=== PATIENT | male | born 1950 | race Caucasian/White ===

== ENCOUNTER 2022-12-26 14:13 | Emergency (ER) | payer OTHER ==
[2022-12-26 15:06] LABS: #Monocytes 0.5 10x3/uL (0.0-1.1); #Neutrophils 4.1 10x3/uL (1.5-8.4); %Basophils 0.6 % (0.0-2.0); %Eosinophils 0.6 % (0.0-6.0); %Lymphocytes 12.8 % (18.0-47.0); %Monocytes 9.8 % (0.0-10.0); Hemoglobin 14.7 g/dL (13.5-17.5); Mean Corpuscular HGB CONC 32.7 g/dL (32.0-36.0); Mean Corpuscular Hemoglobin 28.1 pg (27.0-33.0); Mean Corpuscular Volume 85.9 fl (81.2-95.1); Mean Platelet Volume 9.9 fl (7.4-10.4); Platelet Count 141 10x3/uL (150-450); RBC Distribution Width 14.9 % (11.5-14.5); Red Blood Cell (RBC) Count 5.23 10x6/uL (4.32-5.72); White Blood Cell (WBC) Count 5.3 10x3/uL (3.5-10.5)
[2022-12-26 15:12] LABS: ALT (SGPT) 29 U/L (8-55); AST (SGOT) 30 U/L (5-34); Albumin 4.3 g/dL (3.4-4.8); Alkaline Phosphatase 99 U/L (40-110); Anion Gap 18 mmol/L (10-20); BUN (Urea Nitrogen) 13 mg/dL (8.4-25.7); Bilirubin, Total 0.5 mg/dL (0.2-1.2); Calc. Creatinine Clearance 0 mL/min (70-130); Calcium 9.2 mg/dL (7.8-10.44); Carbon Dioxide 18 mmol/L (23-31); Chloride 105 mmol/L (98-107); Estimated GFR 63; Globulin 2.7 g/dL (2.4-3.5); Glucose 121 mg/dL (83-110); Lipase 18 U/L (8-78); Potassium 3.8 mmol/L (3.5-5.1); Sodium 137 mmol/L (136-145)
[2022-12-26 17:36] LABS: Bilirubin Neg (Negative); Blood, Urine 25 (Negative); Clarity Clear (Clear); Glucose, Urine (Dipstick) >=1000 mg/dL (Negative); Ketone, Urine 50 mg/dL (Negative); Leukocyte Negative (Negative); Nitrite Negative (Negative); Protein, Urine (Dipstick) 15 mg/dl (Neg-Trace); Urobilinogen Normal mg/dL (Less than 2)
[2022-12-26] MEDS ORDERED: Ipratropium/Albuterol 3 ML NEB ONE (17:44)
[2022-12-26 17:45] LABS: Bacteria/HPF Rare-Few HPF (None Seen); CAUTI Indications for Culture Dysuria,urgency,freq; Mucous/LPF Rare LPF (<2+); Squamous Epithelial 0-3 HPF (0-3); Urine Culture Reflex No No; WBC/HPF 0-3 HPF (0-3)
[2022-12-26] MEDS ORDERED: Ondansetron PF 4 MG/2 ML Vial ONE (18:02)
[2022-12-26] MEDS ORDERED: Ketorolac Tromethamine 30 MG/ML VIAL ONE (18:02)
[2022-12-26 18:18] LABS: SARS-CoV-2 NAA Rapid Test DETECTED (NotDetected)
[2022-12-26 18:21] LABS: Actual Bicarbonate (HCO3v) 23.7 mEq/L (22-28); Base Excess 0.2 mEq/L (-2 - +2); Calcium, Ionized (venous) 1.18 mmol/L (1.16-1.32); Chloride (VBG) 104 mmol/L (98-106); Critical Notified By: CP.PH; Hematocrit-VBG 45 % (42.0-52.0); Hemoglobin (Hb) 15.3 g/dL (12.6-17.4); Potassium (VBG) 3.82 mmol/L (3.70-5.30); Puncture Site Other Site; Sodium 139.6 mmol/L (133-146); pH (venous) 7.446 (7.32-7.43)
== END 2022-12-26 19:46 | disposition home or self-care (01) ==
LOC: CSHERS 14:13
DX: U07.1 COVID-19 (principal); E11.9 Type 2 diabetes mellitus without complications; E78.5 Hyperlipidemia, unspecified; I10 Essential (primary) hypertension; Z87.891 Personal history of nicotine dependence
CPT/HCPCS: 0240U; 71045; 80053; 81001; 82805; 83690; 84484; 85025; 93005; 94640; 36415; 96361; 96374; 96375; J1885; J2405; J7620

== ENCOUNTER 2022-12-29 10:01 | Inpatient (IN) | payer OTHER ==
[2022-12-29] MEDS ORDERED: Dexamethasone 10 MG/ML VIAL ONE (10:56)
[2022-12-29] MEDS ORDERED: Aspirin Chewable 81 MG TAB ONE (11:31)
[2022-12-29] MEDS ORDERED: Cefepime 2 GM VIAL ONE (11:31)
[2022-12-29] MEDS ORDERED: Pantoprazole 40 MG VIAL ONE (11:32)
[2022-12-29] MEDS ORDERED: Azithromycin 500 MG VIAL ONE (11:32)
[2022-12-29 11:47] LABS: #Monocytes 0.4 10x3/uL (0.0-1.1); %Lymphocytes 9.7 % (18.0-47.0); %Neutrophils 83.8 % (40.0-75.0); Hematocrit 45.7 % (38.8-50.0); Hemoglobin 14.8 g/dL (13.5-17.5); Mean Corpuscular HGB CONC 32.4 g/dL (32.0-36.0); Mean Corpuscular Hemoglobin 28.1 pg (27.0-33.0); Mean Corpuscular Volume 86.7 fl (81.2-95.1); Mean Platelet Volume 9.9 fl (7.4-10.4); Platelet Count 150 10x3/uL (150-450); RBC Distribution Width 15.1 % (11.5-14.5); Red Blood Cell (RBC) Count 5.27 10x6/uL (4.32-5.72)
[2022-12-29 11:55] LABS: ALT (SGPT) 40 U/L (8-55); AST (SGOT) 59 U/L (5-34); Albumin 4.2 g/dL (3.4-4.8); Alkaline Phosphatase 96 U/L (40-110); Anion Gap 21 mmol/L (10-20); BUN (Urea Nitrogen) 18 mg/dL (8.4-25.7); Bilirubin, Total 0.6 mg/dL (0.2-1.2); Calc. Creatinine Clearance 0 mL/min (70-130); Calcium 9.3 mg/dL (7.8-10.44); Carbon Dioxide 18 mmol/L (23-31); Chloride 103 mmol/L (98-107); Estimated GFR 51; Globulin 3.3 g/dL (2.4-3.5); Glucose 167 mg/dL (83-110); Potassium 4.2 mmol/L (3.5-5.1); Protein, Total 7.5 g/dL (5.8-8.1); Sodium 138 mmol/L (136-145)
[2022-12-29 14:46] LABS: Actual Bicarbonate (HCO3a) 20.4 mEq/L (22-28); Base Excess (BEa) -3.7 mEq/L (-2.0 to +3.0); CO2 Tension 34.4 mmHg (35.0-45.0); Calcium, Ionized (arterial) 1.18 mmol/L (1.12-1.30); Carboxyhemoglobin (COHb) 0.2 gm% (0.0-3.0); Hematocrit-ABG 42 % (42.0-52.0); Hemoglobin (Hb) 14.4 g/dL (14.0-18.0); O2 Tension (PaO2), arterial 84.6 mmHg (> 70.0); Potassium - ABG Lab 4.13 mmol/L (3.70-5.30); Puncture Site LRA; pH, Arterial 7.391 (7.35-7.45)
[2022-12-29] MEDS ORDERED: Senokot S 8.6-50 MG TAB PO PRN (17:31)
[2022-12-29] MEDS ORDERED: Acetaminophen 325 MG TAB PO PRN ×2 (17:31)
[2022-12-29] MEDS ORDERED: HYDROcodone/Acetaminophen 10/325 mg Tablet PO PRN (17:31)
[2022-12-29] MEDS ORDERED: Acetaminophen 650 MG Suppository PR PRN (17:31)
[2022-12-29] MEDS ORDERED: HYDROcodone/Acetaminophen 5/325 mg Tablet PO PRN (17:31)
[2022-12-29] MEDS ORDERED: Benzonatate 100 MG CAP PO PRN (17:31)
[2022-12-29] MEDS ORDERED: REMDESIVIR 200 MG in Sodium Chloride 0.9% 250 ML 210 ML IV SCH ×2 (17:45→23:00)
[2022-12-29] MEDS ORDERED: Glucagon 1 MG/ML KIT IM PRN (20:02)
[2022-12-29] MEDS ORDERED: Dextrose 50% Abboject 50 ML SYRINGE SLOW IVP PRN (20:02)
[2022-12-29] MEDS ORDERED: Dextrose 5% in Water 1,000 ML IV PRN (20:02)
[2022-12-29] MEDS: Lantus 1000 UNITS/10 ML VIAL SC SCH (22:19)
[2022-12-29] MEDS: Famotidine 20 MG TAB PO SCH (22:45)
[2022-12-29] MEDS: Ventolin HFA Inhaler 60 PUFF INHALER INH PRN (23:35)
[2022-12-30] MEDS: Ondansetron ODT 4 MG TAB PO PRN ×2 (04:28→21:28)
[2022-12-30 06:15] LABS: Hematocrit 43.9 % (38.8-50.0); Mean Corpuscular HGB CONC 31.9 g/dL (32.0-36.0); Mean Corpuscular Hemoglobin 27.8 pg (27.0-33.0); Mean Corpuscular Volume 87.3 fl (81.2-95.1); Mean Platelet Volume 9.8 fl (7.4-10.4); Platelet Count 204 10x3/uL (150-450); RBC Distribution Width 15.2 % (11.5-14.5); Red Blood Cell (RBC) Count 5.03 10x6/uL (4.32-5.72); White Blood Cell (WBC) Count 10.9 10x3/uL (3.5-10.5)
[2022-12-30 06:26] LABS: ALT (SGPT) 32 U/L (8-55); AST (SGOT) 47 U/L (5-34); Albumin 3.6 g/dL (3.4-4.8); Alkaline Phosphatase 86 U/L (40-110); Anion Gap 19 mmol/L (10-20); BUN (Urea Nitrogen) 25 mg/dL (8.4-25.7); Bilirubin, Total 0.5 mg/dL (0.2-1.2); Calc. Creatinine Clearance 84 mL/min (70-130); Carbon Dioxide 18 mmol/L (23-31); Chloride 107 mmol/L (98-107); Estimated GFR 59; Glucose 189 mg/dL (83-110); Potassium 4.1 mmol/L (3.5-5.1); Protein, Total 6.6 g/dL (5.8-8.1); Sodium 140 mmol/L (136-145)
[2022-12-30 06:50] LABS: MDiff Complete? YES
[2022-12-30 06:53] LABS: Band 13 % (5-11); Lymphocytes 8 % (21-51); Monocytes 6 % (0-10); Neutrophil 73 % (42-75)
[2022-12-30 06:57] LABS: Platelet Adequacy Comment Appears Adequate; RBC Morph Comment Within Normal Limits
[2022-12-30] MEDS ORDERED: Promethazine HCl 12.5 MG in Sodium Chloride 0.9% 50 ML IVPB SCH (07:00)
[2022-12-30] MEDS: Dexamethasone 4 MG TAB PO SCH (09:32)
[2022-12-30] MEDS: Famotidine 20 MG TAB PO SCH ×2 (09:32→21:28)
[2022-12-30] MEDS: Zinc Sulfate 220 MG CAP PO SCH (09:32)
[2022-12-30] MEDS: Lantus 1000 UNITS/10 ML VIAL SC SCH (21:28)
[2022-12-30] MEDS: REMDESIVIR 100 MG in Sodium Chloride 0.9% 250 ML 230 ML IV SCH (22:44)
[2022-12-31] MEDS: Famotidine 20 MG TAB PO SCH ×2 (09:01→20:10)
[2022-12-31] MEDS: Dexamethasone 4 MG TAB PO SCH (09:02)
[2022-12-31] MEDS: Zinc Sulfate 220 MG CAP PO SCH (09:02)
[2022-12-31] MEDS: Ondansetron ODT 4 MG TAB PO PRN (09:03)
[2022-12-31] MEDS: Ventolin HFA Inhaler 60 PUFF INHALER INH PRN ×2 (13:50→18:50)
[2022-12-31 15:05] LABS: Anion Gap 18 mmol/L (10-20); BUN (Urea Nitrogen) 29 mg/dL (8.4-25.7); CRP (Inflammatory) 14.69 mg/dL (= or < 0.5); Calc. Creatinine Clearance 100 mL/min (70-130); Calcium 9.3 mg/dL (7.8-10.44); Carbon Dioxide 18 mmol/L (23-31); Chloride 106 mmol/L (98-107); Estimated GFR 72; Glucose 273 mg/dL (83-110); Potassium 4.4 mmol/L (3.5-5.1); Sodium 138 mmol/L (136-145)
[2022-12-31 15:56] LABS: Actual Bicarbonate (HCO3a) 21.8 mEq/L (22-28); Base Excess (BEa) -2.3 mEq/L (-2.0 to +3.0); CO2 Tension 35.6 mmHg (35.0-45.0); Calcium, Ionized (arterial) 1.22 mmol/L (1.12-1.30); Carboxyhemoglobin (COHb) 0.3 gm% (0.0-3.0); Hematocrit-ABG 44 % (42.0-52.0); Hemoglobin (Hb) 14.8 g/dL (14.0-18.0); O2 Tension (PaO2), arterial 70.9 mmHg (> 70.0); Puncture Site RRA; pH, Arterial 7.404 (7.35-7.45)
[2022-12-31] MEDS: Lantus 1000 UNITS/10 ML VIAL SC SCH (20:10)
[2022-12-31] MEDS: ALPRAZolam 0.25 MG TAB PO PRN (20:10)
[2022-12-31] MEDS: HumaLOG 300 UNITS/3 ML VIAL SC PRN (20:20)
[2022-12-31] MEDS: REMDESIVIR 100 MG in Sodium Chloride 0.9% 250 ML 230 ML IV SCH (22:36)
[2022-12-31] MEDS: Melatonin 3 MG TAB PO PRN (22:36)
[2023-01-01] MEDS: ALPRAZolam 0.25 MG TAB PO PRN (01:38)
[2023-01-01] MEDS ORDERED: Lorazepam 2 MG/ML VIAL SLOW IVP SCH (03:45)
[2023-01-01] MEDS: HumaLOG 300 UNITS/3 ML VIAL SC PRN ×3 (05:37→20:45)
[2023-01-01] MEDS ORDERED: Haloperidol Lactate 5 MG/ML VIAL IM PRN (07:37)
[2023-01-01] MEDS: Sodium Chloride 0.45% 1,000 ML IV SCH ×2 (08:23→20:31)
[2023-01-01 08:24] LABS: #Monocytes 0.4 10x3/uL (0.0-1.1); #Neutrophils 7.5 10x3/uL (1.5-8.4); %Basophils 0.1 % (0.0-2.0); %Lymphocytes 7.4 % (18.0-47.0); %Monocytes 5.1 % (0.0-10.0); %Neutrophils 86.7 % (40.0-75.0); Hematocrit 42.8 % (38.8-50.0); Hemoglobin 14.1 g/dL (13.5-17.5); Mean Corpuscular HGB CONC 32.9 g/dL (32.0-36.0); Mean Corpuscular Hemoglobin 28.1 pg (27.0-33.0); Mean Corpuscular Volume 85.3 fl (81.2-95.1); Mean Platelet Volume 9.6 fl (7.4-10.4); Platelet Count 271 10x3/uL (150-450); RBC Distribution Width 15.2 % (11.5-14.5); Red Blood Cell (RBC) Count 5.02 10x6/uL (4.32-5.72); White Blood Cell (WBC) Count 8.7 10x3/uL (3.5-10.5)
[2023-01-01 08:33] LABS: Anion Gap 15 mmol/L (10-20); BUN (Urea Nitrogen) 29 mg/dL (8.4-25.7); Calc. Creatinine Clearance 113 mL/min (70-130); Carbon Dioxide 21 mmol/L (23-31); Chloride 107 mmol/L (98-107); Estimated GFR 83; Glucose 255 mg/dL (83-110); Potassium 4.4 mmol/L (3.5-5.1); Sodium 139 mmol/L (136-145)
[2023-01-01] MEDS: Famotidine 20 MG TAB PO SCH ×2 (09:07→20:31)
[2023-01-01] MEDS: Dexamethasone 4 MG TAB PO SCH (09:07)
[2023-01-01] MEDS: Zinc Sulfate 220 MG CAP PO SCH (09:07)
[2023-01-01] MEDS ORDERED: risperiDONE 1 MG TAB PO SCH (10:00)
[2023-01-01] MEDS: Melatonin 3 MG TAB PO PRN (20:31)
[2023-01-01] MEDS: Lantus 1000 UNITS/10 ML VIAL SC SCH (20:32)
[2023-01-01] MEDS: REMDESIVIR 100 MG in Sodium Chloride 0.9% 250 ML 230 ML IV SCH (23:12)
[2023-01-02] MEDS: Ondansetron ODT 4 MG TAB PO PRN ×2 (00:59→09:39)
[2023-01-02 03:49] LABS: Anion Gap 16 mmol/L (10-20); BUN (Urea Nitrogen) 23 mg/dL (8.4-25.7); Calc. Creatinine Clearance 137 mL/min (70-130); Calcium 8.6 mg/dL (7.8-10.44); Carbon Dioxide 20 mmol/L (23-31); Chloride 105 mmol/L (98-107); Estimated GFR 94; Glucose 172 mg/dL (83-110); Potassium 4.5 mmol/L (3.5-5.1); Sodium 136 mmol/L (136-145)
[2023-01-02 03:59] LABS: #Monocytes 0.3 10x3/uL (0.0-1.1); #Neutrophils 6.6 10x3/uL (1.5-8.4); %Basophils 0.2 % (0.0-2.0); %Eosinophils 0.4 % (0.0-6.0); %Lymphocytes 12.1 % (18.0-47.0); %Neutrophils 82.4 % (40.0-75.0); Hematocrit 44.4 % (38.8-50.0); Hemoglobin 14.3 g/dL (13.5-17.5); Mean Corpuscular HGB CONC 32.2 g/dL (32.0-36.0); Mean Corpuscular Hemoglobin 27.7 pg (27.0-33.0); Mean Corpuscular Volume 85.9 fl (81.2-95.1); Mean Platelet Volume 9.1 fl (7.4-10.4); Platelet Count 237 10x3/uL (150-450); Red Blood Cell (RBC) Count 5.17 10x6/uL (4.32-5.72)
[2023-01-02] MEDS: ALPRAZolam 0.25 MG TAB PO PRN (04:43)
[2023-01-02] MEDS: HumaLOG 300 UNITS/3 ML VIAL SC PRN ×3 (06:20→22:41)
[2023-01-02] MEDS: Sertraline 100 MG TAB PO SCH (08:00)
[2023-01-02] MEDS: Atorvastatin Calcium 40 MG TAB PO SCH (08:00)
[2023-01-02] MEDS: Bupropion 150 MG SR TAB PO SCH (08:00)
[2023-01-02] MEDS: Zinc Sulfate 220 MG CAP PO SCH (08:00)
[2023-01-02] MEDS: Dexamethasone 4 MG TAB PO SCH (08:00)
[2023-01-02] MEDS: risperiDONE 1 MG TAB PO SCH (08:00)
[2023-01-02] MEDS: Famotidine 20 MG TAB PO SCH ×2 (08:00→20:18)
[2023-01-02] MEDS: Sodium Chloride 0.45% 1,000 ML IV SCH ×2 (09:31→21:57)
[2023-01-02] MEDS ORDERED: Furosemide 40 MG/4 ML VIAL SLOW IVP SCH ×2 (10:30→21:00)
[2023-01-02] MEDS ORDERED: Lorazepam 2 MG/ML VIAL SLOW IVP PRN (16:44)
[2023-01-02 20:14] LABS: Actual Bicarbonate (HCO3a) 20.9 mEq/L (22-28); Base Excess (BEa) -1.2 mEq/L (-2.0 to +3.0); CO2 Tension 28.8 mmHg (35.0-45.0); O2 Tension (PaO2), arterial 50.5 mmHg (> 70.0); Puncture Site LRA; pH, Arterial 7.479 (7.35-7.45)
[2023-01-02] MEDS: Furosemide 40 MG/4 ML VIAL SLOW IVP SCH (20:43)
[2023-01-02] MEDS: Lantus 1000 UNITS/10 ML VIAL SC SCH (20:43)
[2023-01-02] MEDS: Dexmedetomidine In 0.9 % NaCl 400 MCG in Premix Bag 1 BAG IVPB SCH (20:50)
[2023-01-02] MEDS: REMDESIVIR 100 MG in Sodium Chloride 0.9% 250 ML 230 ML IV SCH (22:36)
[2023-01-03 04:38] LABS: ALT (SGPT) 69 U/L (8-55); AST (SGOT) 54 U/L (5-34); Albumin 3.4 g/dL (3.4-4.8); Alkaline Phosphatase 114 U/L (40-110); Anion Gap 18 mmol/L (10-20); BUN (Urea Nitrogen) 23 mg/dL (8.4-25.7); Bilirubin, Total 0.9 mg/dL (0.2-1.2); Calc. Creatinine Clearance 120 mL/min (70-130); Carbon Dioxide 25 mmol/L (23-31); Chloride 102 mmol/L (98-107); Estimated GFR 90; Globulin 3.2 g/dL (2.4-3.5); Glucose 179 mg/dL (83-110); Phosphorus 2.4 mg/dL (2.3-4.7); Potassium 3.6 mmol/L (3.5-5.1); Protein, Total 6.6 g/dL (5.8-8.1); Sodium 141 mmol/L (136-145)
[2023-01-03 04:40] LABS: #Monocytes 0.2 10x3/uL (0.0-1.1); #Neutrophils 9.1 10x3/uL (1.5-8.4); %Basophils 0.2 % (0.0-2.0); %Eosinophils 0.2 % (0.0-6.0); %Lymphocytes 5.7 % (18.0-47.0); %Monocytes 1.7 % (0.0-10.0); %Neutrophils 91.2 % (40.0-75.0); Hematocrit 44.7 % (38.8-50.0); Hemoglobin 14.7 g/dL (13.5-17.5); Mean Corpuscular HGB CONC 32.9 g/dL (32.0-36.0); Mean Corpuscular Hemoglobin 27.8 pg (27.0-33.0); Mean Corpuscular Volume 84.5 fl (81.2-95.1); Mean Platelet Volume 9.5 fl (7.4-10.4); Platelet Count 263 10x3/uL (150-450); RBC Distribution Width 14.9 % (11.5-14.5); Red Blood Cell (RBC) Count 5.29 10x6/uL (4.32-5.72)
[2023-01-03] MEDS ORDERED: diphenhydrAMINE 50 MG/ML VIAL IM SCH (04:45)
[2023-01-03] MEDS: HumaLOG 300 UNITS/3 ML VIAL SC PRN ×5 (05:22→21:55)
[2023-01-03] MEDS: Furosemide 40 MG/4 ML VIAL SLOW IVP SCH ×2 (08:41→20:17)
[2023-01-03] MEDS: Dexamethasone 20 MG/5 ML VIAL SLOW IVP SCH (08:41)
[2023-01-03] MEDS: Zinc Sulfate 220 MG CAP PO SCH (08:42)
[2023-01-03] MEDS: risperiDONE 1 MG TAB PO SCH (08:42)
[2023-01-03] MEDS: Famotidine 20 MG TAB PO SCH ×2 (08:42→20:17)
[2023-01-03] MEDS: Atorvastatin Calcium 40 MG TAB PO SCH (08:42)
[2023-01-03] MEDS: Bupropion 150 MG SR TAB PO SCH (08:42)
[2023-01-03] MEDS: Sertraline 100 MG TAB PO SCH (08:42)
[2023-01-03] MEDS ORDERED: Dexamethasone 10 MG in Sodium Chloride 0.9% 50 ML IVPB SCH (09:00)
[2023-01-03] MEDS ORDERED: BARICITINIB 2 MG TAB PO SCH ×2 (10:30→10:45)
[2023-01-03] MEDS ORDERED: Cefepime 2 GM in Sodium Chloride 0.9% 100 ML IVPB SCH (12:00)
[2023-01-03] MEDS: Dexmedetomidine In 0.9 % NaCl 400 MCG in Premix Bag 1 BAG IVPB SCH (18:26)
[2023-01-03] MEDS: Cefepime 2 GM in Sodium Chloride 0.9% 100 ML IVPB SCH (20:17)
[2023-01-03] MEDS: Lantus 1000 UNITS/10 ML VIAL SC SCH (20:17)
[2023-01-04 05:39] LABS: Anion Gap 21 mmol/L (10-20); BUN (Urea Nitrogen) 33 mg/dL (8.4-25.7); CRP (Inflammatory) 22.75 mg/dL (= or < 0.5); Calc. Creatinine Clearance 100 mL/min (70-130); Calcium 9.6 mg/dL (7.8-10.44); Carbon Dioxide 24 mmol/L (23-31); Chloride 104 mmol/L (98-107); Estimated GFR 79; Glucose 218 mg/dL (83-110); Potassium 3.6 mmol/L (3.5-5.1); Sodium 145 mmol/L (136-145)
[2023-01-04 05:42] LABS: #Monocytes 0.2 10x3/uL (0.0-1.1); #Neutrophils 12.5 10x3/uL (1.5-8.4); %Basophils 0.2 % (0.0-2.0); %Eosinophils 0.2 % (0.0-6.0); %Monocytes 1.3 % (0.0-10.0); %Neutrophils 94.4 % (40.0-75.0); Hematocrit 46.7 % (38.8-50.0); Hemoglobin 15.2 g/dL (13.5-17.5); Mean Corpuscular HGB CONC 32.5 g/dL (32.0-36.0); Mean Corpuscular Hemoglobin 27.8 pg (27.0-33.0); Mean Corpuscular Volume 85.4 fl (81.2-95.1); Mean Platelet Volume 9.5 fl (7.4-10.4); Platelet Count 329 10x3/uL (150-450); RBC Distribution Width 15.2 % (11.5-14.5); Red Blood Cell (RBC) Count 5.47 10x6/uL (4.32-5.72); White Blood Cell (WBC) Count 13.2 10x3/uL (3.5-10.5)
[2023-01-04] MEDS: HumaLOG 300 UNITS/3 ML VIAL SC PRN ×4 (05:45→20:49)
[2023-01-04] MEDS: Cefepime 2 GM in Sodium Chloride 0.9% 100 ML IVPB SCH ×3 (08:24→20:25)
[2023-01-04] MEDS: Dexamethasone 20 MG/5 ML VIAL SLOW IVP SCH (08:25)
[2023-01-04] MEDS: Dexmedetomidine In 0.9 % NaCl 400 MCG in Premix Bag 1 BAG IVPB SCH ×2 (08:25→22:04)
[2023-01-04] MEDS: Furosemide 40 MG/4 ML VIAL SLOW IVP SCH ×2 (08:25→20:21)
[2023-01-04] MEDS: Atorvastatin Calcium 40 MG TAB PO SCH (08:26)
[2023-01-04] MEDS: risperiDONE 1 MG TAB PO SCH (08:27)
[2023-01-04] MEDS: Sertraline 100 MG TAB PO SCH (08:27)
[2023-01-04] MEDS: Bupropion 150 MG SR TAB PO SCH (08:27)
[2023-01-04] MEDS: Zinc Sulfate 220 MG CAP PO SCH (08:27)
[2023-01-04] MEDS: Famotidine 20 MG TAB PO SCH ×2 (08:27→20:21)
[2023-01-04] MEDS ORDERED: BARICITINIB 2 MG TAB PO SCH ×2 (09:00)
[2023-01-04] MEDS: Lantus 1000 UNITS/10 ML VIAL SC SCH (20:21)
[2023-01-05 03:25] LABS: #Monocytes 0.4 10x3/uL (0.0-1.1); #Neutrophils 16.3 10x3/uL (1.5-8.4); %Basophils 0.2 % (0.0-2.0); %Eosinophils 0.2 % (0.0-6.0); %Lymphocytes 2.3 % (18.0-47.0); %Monocytes 2.4 % (0.0-10.0); %Neutrophils 93.8 % (40.0-75.0); Hematocrit 48.2 % (38.8-50.0); Hemoglobin 15.9 g/dL (13.5-17.5); Platelet Count 321 10x3/uL (150-450); RBC Distribution Width 15.8 % (11.5-14.5); Red Blood Cell (RBC) Count 5.67 10x6/uL (4.32-5.72); White Blood Cell (WBC) Count 17.4 10x3/uL (3.5-10.5)
[2023-01-05 03:53] LABS: Anion Gap 19 mmol/L (10-20); BUN (Urea Nitrogen) 45 mg/dL (8.4-25.7); Calc. Creatinine Clearance 86 mL/min (70-130); Calcium 9.7 mg/dL (7.8-10.44); Carbon Dioxide 23 mmol/L (23-31); Chloride 108 mmol/L (98-107); Estimated GFR 69; Glucose 229 mg/dL (83-110); Magnesium 2.3 mg/dL (1.6-2.6); Potassium 3.4 mmol/L (3.5-5.1); Sodium 147 mmol/L (136-145)
[2023-01-05 03:56] LABS: Platelet Adequacy Comment Appears Adequate
[2023-01-05 03:57] LABS: Microcytosis SLIGHT = 6-15 cells (100X) (0-5/hpf)
[2023-01-05] MEDS: HumaLOG 300 UNITS/3 ML VIAL SC PRN ×4 (06:09→21:49)
[2023-01-05] MEDS: Dexmedetomidine In 0.9 % NaCl 400 MCG in Premix Bag 1 BAG IVPB SCH ×2 (07:17→19:08)
[2023-01-05] MEDS ORDERED: Dexmedetomidine In 0.9 % NaCl 100 ML ONE (07:20)
[2023-01-05] MEDS: Furosemide 40 MG/4 ML VIAL SLOW IVP SCH (08:36)
[2023-01-05] MEDS: Cefepime 2 GM in Sodium Chloride 0.9% 100 ML IVPB SCH ×2 (08:36→21:45)
[2023-01-05] MEDS: Dexamethasone 20 MG/5 ML VIAL SLOW IVP SCH ×2 (08:36→16:57)
[2023-01-05] MEDS: Atorvastatin Calcium 40 MG TAB PO SCH (08:38)
[2023-01-05] MEDS: Famotidine 20 MG TAB PO SCH (08:39)
[2023-01-05] MEDS: Sertraline 100 MG TAB PO SCH (08:39)
[2023-01-05] MEDS: Zinc Sulfate 220 MG CAP PO SCH (08:39)
[2023-01-05] MEDS: Bupropion 150 MG SR TAB PO SCH (08:39)
[2023-01-05] MEDS: risperiDONE 1 MG TAB PO SCH (08:39)
[2023-01-05] MEDS ORDERED: Electrolyte Replacement Protocol 1 EACH FS SCH (15:30)
[2023-01-05] MEDS: Ascorbic Acid 500 mg Chewable Tablet PO SCH (20:22)
[2023-01-05] MEDS: Lantus 1000 UNITS/10 ML VIAL SC SCH (21:47)
[2023-01-05] MEDS: Pantoprazole 40 MG VIAL IVP SCH (21:47)
[2023-01-06] MEDS: Potassium Chloride 20 MEQ in Premix Bag 1 BAG IVPB SCH ×2 (01:08→04:08)
[2023-01-06] MEDS: Dexamethasone 20 MG/5 ML VIAL SLOW IVP SCH ×2 (04:08→15:22)
[2023-01-06] MEDS: Dexmedetomidine In 0.9 % NaCl 400 MCG in Premix Bag 1 BAG IVPB SCH ×2 (07:48→17:36)
[2023-01-06] MEDS: Cefepime 2 GM in Sodium Chloride 0.9% 100 ML IVPB SCH ×2 (09:07→21:19)
[2023-01-06] MEDS: Ascorbic Acid 500 mg Chewable Tablet PO SCH ×3 (09:08→21:19)
[2023-01-06] MEDS: Bupropion 150 MG SR TAB PO SCH (09:09)
[2023-01-06] MEDS: Zinc Sulfate 220 MG CAP PO SCH (09:09)
[2023-01-06] MEDS: Cholecalciferol 1,000 UNITS (25 MCG) TAB PO SCH (09:09)
[2023-01-06] MEDS: Sertraline 100 MG TAB PO SCH (09:09)
[2023-01-06] MEDS: Atorvastatin Calcium 40 MG TAB PO SCH (09:09)
[2023-01-06] MEDS: risperiDONE 1 MG TAB PO SCH (09:09)
[2023-01-06 11:10] LABS: Actual Bicarbonate (HCO3a) 25.2 mEq/L (22-28); Base Excess (BEa) 1.3 mEq/L (-2.0 to +3.0); Calcium, Ionized (arterial) 1.29 mmol/L (1.12-1.30); Carboxyhemoglobin (COHb) 0.3 gm% (0.0-3.0); Hematocrit-ABG 49 % (42.0-52.0); Hemoglobin (Hb) 16.7 g/dL (14.0-18.0); Potassium - ABG Lab 3.76 mmol/L (3.70-5.30); Puncture Site RRA
[2023-01-06] MEDS: HumaLOG 300 UNITS/3 ML VIAL SC PRN ×3 (11:13→22:10)
[2023-01-06] MEDS ORDERED: HumaLOG 300 UNITS/3 ML VIAL SC SCH (15:15)
[2023-01-06] MEDS: Budesonide 0.5 MG/2 ML NEB NEB SCH (19:05)
[2023-01-06] MEDS: Pantoprazole 40 MG VIAL IVP SCH (21:19)
[2023-01-06] MEDS: Lantus 1000 UNITS/10 ML VIAL SC SCH (21:39)
[2023-01-07] MEDS: Dexamethasone 20 MG/5 ML VIAL SLOW IVP SCH ×3 (04:09→15:53)
[2023-01-07 05:51] LABS: #Basophils 0.1 10x3/uL (0.0-0.2); #Monocytes 0.4 10x3/uL (0.0-1.1); #Neutrophils 19.4 10x3/uL (1.5-8.4); %Basophils 0.3 % (0.0-2.0); %Lymphocytes 2.4 % (18.0-47.0); %Neutrophils 94.5 % (40.0-75.0); Hematocrit 53.7 % (38.8-50.0); Mean Corpuscular HGB CONC 31.7 g/dL (32.0-36.0); Mean Corpuscular Volume 88.5 fl (81.2-95.1); Mean Platelet Volume 9.9 fl (7.4-10.4); Platelet Count 250 10x3/uL (150-450); RBC Distribution Width 15.8 % (11.5-14.5); Red Blood Cell (RBC) Count 6.07 10x6/uL (4.32-5.72); White Blood Cell (WBC) Count 20.6 10x3/uL (3.5-10.5)
[2023-01-07] MEDS: Dexmedetomidine In 0.9 % NaCl 400 MCG in Premix Bag 1 BAG IVPB SCH ×2 (05:53→11:10)
[2023-01-07] MEDS: HumaLOG 300 UNITS/3 ML VIAL SC PRN ×3 (06:00→17:34)
[2023-01-07 06:20] LABS: Anion Gap 21 mmol/L (10-20); BUN (Urea Nitrogen) 81 mg/dL (8.4-25.7); CRP (Inflammatory) 11.41 mg/dL (= or < 0.5); Calc. Creatinine Clearance 52 mL/min (70-130); Calcium 10.1 mg/dL (7.8-10.44); Carbon Dioxide 19 mmol/L (23-31); Chloride 121 mmol/L (98-107); Estimated GFR 38; Glucose 339 mg/dL (83-110); Potassium 3.9 mmol/L (3.5-5.1)
[2023-01-07 06:33] LABS: Sodium 157 mmol/L (136-145)
[2023-01-07] MEDS: risperiDONE 1 MG TAB PO SCH (08:32)
[2023-01-07] MEDS: Bupropion 150 MG SR TAB PO SCH (08:32)
[2023-01-07] MEDS: Lantus 1000 UNITS/10 ML VIAL SC SCH (08:32)
[2023-01-07] MEDS: Ascorbic Acid 500 mg Chewable Tablet PO SCH ×3 (08:32→20:19)
[2023-01-07] MEDS: Sertraline 100 MG TAB PO SCH (08:33)
[2023-01-07] MEDS: Atorvastatin Calcium 40 MG TAB PO SCH (08:33)
[2023-01-07] MEDS: Zinc Sulfate 220 MG CAP PO SCH (08:33)
[2023-01-07] MEDS: Cefepime 2 GM in Sodium Chloride 0.9% 100 ML IVPB SCH (08:33)
[2023-01-07] MEDS: Cholecalciferol 1,000 UNITS (25 MCG) TAB PO SCH (08:35)
[2023-01-07] MEDS ORDERED: Senokot S 8.6-50 MG TAB PO PRN (09:15)
[2023-01-07] MEDS: Budesonide 0.5 MG/2 ML NEB NEB SCH ×2 (10:10→19:04)
[2023-01-07] MEDS ORDERED: HumaLOG 300 UNITS/3 ML VIAL SC SCH ×2 (12:30→17:45)
[2023-01-07] MEDS ORDERED: Dextrose 5% in Water 1,000 ML IV SCH (14:30)
[2023-01-07 17:13] LABS: Anion Gap 23 mmol/L (10-20); BUN (Urea Nitrogen) 96 mg/dL (8.4-25.7); Calc. Creatinine Clearance 42 mL/min (70-130); Calcium 9.6 mg/dL (7.8-10.44); Carbon Dioxide 12 mmol/L (23-31); Chloride 122 mmol/L (98-107); Estimated GFR 30; Potassium 4.4 mmol/L (3.5-5.1)
[2023-01-07 17:15] LABS: Glucose 619 mg/dL (83-110); Sodium 153 mmol/L (136-145)
[2023-01-07] MEDS: Cefepime 1 GM in Sodium Chloride 0.9% 100 ML IVPB SCH (20:16)
[2023-01-07] MEDS: Pantoprazole 40 MG VIAL IVP SCH (20:30)
[2023-01-07] MEDS: Melatonin 3 MG TAB PO SCH (20:33)
[2023-01-07] MEDS ORDERED: Lantus 1000 UNITS/10 ML VIAL SC SCH (21:00)
[2023-01-08] MEDS: HumaLOG 300 UNITS/3 ML VIAL SC PRN ×2 (01:00→05:55)
[2023-01-08] MEDS: Dexamethasone 20 MG/5 ML VIAL SLOW IVP SCH (03:29)
[2023-01-08] MEDS: Dexmedetomidine In 0.9 % NaCl 400 MCG in Premix Bag 1 BAG IVPB SCH ×3 (03:30→13:55)
[2023-01-08 03:33] LABS: #Eosinphils 1.3 10x3/uL (0.0-0.5); #Monocytes 0.3 10x3/uL (0.0-1.1); #Neutrophils 16.7 10x3/uL (1.5-8.4); %Basophils 0.2 % (0.0-2.0); %Eosinophils 7.1 % (0.0-6.0); %Lymphocytes 2.7 % (18.0-47.0); %Monocytes 1.4 % (0.0-10.0); Hematocrit 52.7 % (38.8-50.0); Hemoglobin 16.7 g/dL (13.5-17.5); Mean Corpuscular HGB CONC 31.7 g/dL (32.0-36.0); Mean Corpuscular Hemoglobin 27.6 pg (27.0-33.0); Mean Corpuscular Volume 87.3 fl (81.2-95.1); Mean Platelet Volume 10.3 fl (7.4-10.4); Platelet Count 180 10x3/uL (150-450); RBC Distribution Width 16.7 % (11.5-14.5); Red Blood Cell (RBC) Count 6.04 10x6/uL (4.32-5.72); White Blood Cell (WBC) Count 18.9 10x3/uL (3.5-10.5)
[2023-01-08 04:36] LABS: Anion Gap 20 mmol/L (10-20); BUN (Urea Nitrogen) 110 mg/dL (8.4-25.7); Calc. Creatinine Clearance 39 mL/min (70-130); Carbon Dioxide 20 mmol/L (23-31); Chloride 122 mmol/L (98-107); Estimated GFR 27; Glucose 373 mg/dL (83-110); Magnesium 3.3 mg/dL (1.6-2.6); Phosphorus 2.3 mg/dL (2.3-4.7); Potassium 3.7 mmol/L (3.5-5.1)
[2023-01-08 04:40] LABS: Sodium 158 mmol/L (136-145)
[2023-01-08 06:42] LABS: Albumin 2.6 g/dL (3.4-4.8)
[2023-01-08] MEDS: Budesonide 0.5 MG/2 ML NEB NEB SCH ×3 (07:57→21:10)
[2023-01-08 08:10] LABS: Bilirubin Neg (Negative); Urobilinogen Normal mg/dL (Less than 2)
[2023-01-08 08:14] LABS: Clarity Cloudy (Clear); Leukocyte Unable to Interpret (Negative); Nitrite Unable to Interpret (Negative); Protein, Urine (Dipstick) Unable to Interpret mg/dl (Neg-Trace)
[2023-01-08 08:15] LABS: Blood, Urine Unable to Interpret (Negative); Glucose, Urine (Dipstick) Unable to Interpret mg/dL (Negative); Ketone, Urine Unable to Interpret mg/dL (Negative); RBC/HPF Greater than 50 HPF (0-3)
[2023-01-08 08:17] LABS: Bacteria/HPF 1+ HPF (None Seen); Renal Epithelial 0-3 HPF (None Seen); Squamous Epithelial 0-3 HPF (0-3)
[2023-01-08 08:18] LABS: Red Blood Cell Cast 0-3 LPF (None Seen)
[2023-01-08] MEDS ORDERED: Ventilator Sedation Protocol 1 EACH FS SCH (08:20)
[2023-01-08 08:23] LABS: Protein, Urine Random Quant 90 mg/dL (1-14)
[2023-01-08] MEDS ORDERED: Lorazepam 2 MG/ML VIAL SLOW IVP PRN (08:30)
[2023-01-08] MEDS ORDERED: NOREPINEPHRINE 8 MG/250 ML-D5W 250 ML IVPB SCH (08:30)
[2023-01-08] MEDS ORDERED: Fentanyl BOLUS 250 ML IVPB PRN (08:30)
[2023-01-08] MEDS ORDERED: Morphine 2 MG/ML VIAL SLOW IVP PRN (08:30)
[2023-01-08] MEDS ORDERED: Propofol BOLUS 1,000 MG/100 ML VIAL IV PRN (08:30)
[2023-01-08] MEDS ORDERED: DISCONTINUE PREVIOUS NARCOTIC PAIN MEDICATIONS AND BENZODIAZEPINES FS SCH (08:30)
[2023-01-08] MEDS ORDERED: Lantus 1000 UNITS/10 ML VIAL SC SCH (09:00)
[2023-01-08] MEDS: FENTANYL 2,000MCG/100-0.9%NACL 100 ML IVPB SCH (09:15)
[2023-01-08] MEDS: Propofol 1,000 MG/100 ML VIAL IV PRN (09:15)
[2023-01-08] MEDS ORDERED: Ventilator Sedation Protocol 1 EACH FS ONE (10:21)
[2023-01-08] MEDS: Cefepime 1 GM in Sodium Chloride 0.9% 100 ML IVPB SCH ×2 (10:43→20:11)
[2023-01-08] MEDS: Dextrose 5% in Water 1,000 ML IV SCH ×3 (10:45→15:45)
[2023-01-08] MEDS: Cholecalciferol 1,000 UNITS (25 MCG) TAB PO SCH (10:46)
[2023-01-08] MEDS: Ascorbic Acid 500 mg Chewable Tablet PO SCH ×3 (10:46→20:12)
[2023-01-08] MEDS: Bupropion 150 MG SR TAB PO SCH (10:46)
[2023-01-08] MEDS: risperiDONE 1 MG TAB PO SCH (10:46)
[2023-01-08] MEDS: Zinc Sulfate 220 MG CAP PO SCH (10:47)
[2023-01-08] MEDS: Atorvastatin Calcium 40 MG TAB PO SCH (10:50)
[2023-01-08] MEDS: INSULIN REGULAR IN 0.9 % NACL 100 UNITS in Premix Bag 1 BAG IVPB SCH ×2 (11:45→20:37)
[2023-01-08] MEDS: Vasopressin 20 UNITS, Admixture Fee 1 EACH in Sodium Chloride 0.9% 50 ML IV SCH (12:25)
[2023-01-08] MEDS: Sertraline 100 MG TAB PO SCH (12:53)
[2023-01-08] MEDS ORDERED: Phenylephrine 40 MG/NS 250 ML 250 ML ONE (13:16)
[2023-01-08] MEDS: Phenylephrine 40 MG/NS 250 ML 40 MG in Premix Bag 1 BAG IVPB SCH ×3 (13:30→23:15)
[2023-01-08 13:31] LABS: Anion Gap 21 mmol/L (10-20); BUN (Urea Nitrogen) 118 mg/dL (8.4-25.7); Calc. Creatinine Clearance 30 mL/min (70-130); Carbon Dioxide 17 mmol/L (23-31); Chloride 123 mmol/L (98-107); Estimated GFR 20; Glucose 230 mg/dL (83-110); Potassium 4.4 mmol/L (3.5-5.1)
[2023-01-08 13:38] LABS: Sodium 157 mmol/L (136-145)
[2023-01-08 16:53] LABS: Base Excess (BEa) -8.2 mEq/L (-2.0 to +3.0); CO2 Tension 63.8 mmHg (35.0-45.0); Calcium, Ionized (arterial) 1.41 mmol/L (1.12-1.30); Hematocrit-ABG 53 % (42.0-52.0); Hemoglobin (Hb) 17.9 g/dL (14.0-18.0); O2 Tension (PaO2), arterial 59.2 mmHg (> 70.0); Potassium - ABG Lab 4.22 mmol/L (3.70-5.30); Puncture Site LRA; pH, Arterial 7.156 (7.35-7.45)
[2023-01-08 17:54] LABS: Actual Bicarbonate (HCO3a) 18.7 mEq/L (22-28); Base Excess (BEa) -7.6 mEq/L (-2.0 to +3.0); CO2 Tension 40.8 mmHg (35.0-45.0); Calcium, Ionized (arterial) 1.26 mmol/L (1.12-1.30); Carboxyhemoglobin (COHb) 0.3 gm% (0.0-3.0); Hematocrit-ABG 44 % (42.0-52.0); Hemoglobin (Hb) 15.1 g/dL (14.0-18.0); O2 Tension (PaO2), arterial 64.4 mmHg (> 70.0); Puncture Site Arterial Line; pH, Arterial 7.279 (7.35-7.45)
[2023-01-08] MEDS: Albumin 25% 25 GM/100 ML BOT IVPB SCH ×2 (18:00→22:04)
[2023-01-08] MEDS: Melatonin 3 MG TAB PO SCH (20:11)
[2023-01-08] MEDS: Pantoprazole 40 MG VIAL IVP SCH (20:11)
[2023-01-08 22:04] LABS: Anion Gap 17 mmol/L (10-20); BUN (Urea Nitrogen) 123 mg/dL (8.4-25.7); Calc. Creatinine Clearance 26 mL/min (70-130); Calcium 8.7 mg/dL (7.8-10.44); Carbon Dioxide 23 mmol/L (23-31); Chloride 116 mmol/L (98-107); Estimated GFR 17; Glucose 181 mg/dL (83-110); Potassium 4.3 mmol/L (3.5-5.1)
[2023-01-08 22:43] LABS: Sodium 152 mmol/L (136-145)
[2023-01-09] MEDS: Vasopressin 20 UNITS, Admixture Fee 1 EACH in Sodium Chloride 0.9% 50 ML IV SCH ×2 (01:23→10:19)
[2023-01-09 03:29] LABS: ALT (SGPT) 37 U/L (8-55); AST (SGOT) 56 U/L (5-34); Albumin 2.8 g/dL (3.4-4.8); Alkaline Phosphatase 138 U/L (40-110); Anion Gap 18 mmol/L (10-20); Bilirubin, Total 0.5 mg/dL (0.2-1.2); Calc. Creatinine Clearance 24 mL/min (70-130); Calcium 8.8 mg/dL (7.8-10.44); Carbon Dioxide 21 mmol/L (23-31); Chloride 116 mmol/L (98-107); Estimated GFR 15; Globulin 3.1 g/dL (2.4-3.5); Glucose 162 mg/dL (83-110); Potassium 4.3 mmol/L (3.5-5.1); Protein, Total 5.9 g/dL (5.8-8.1)
[2023-01-09 03:40] LABS: BUN (Urea Nitrogen) Greater than 125 mg/dL (8.4-25.7); Sodium 151 mmol/L (136-145)
[2023-01-09 06:05] LABS: Urea Nitrogen, Random Urine 1170 mg/dl
[2023-01-09 06:57] LABS: ALV-art Gradient 531.175 mmHg (0-20); Actual Bicarbonate (HCO3a) 21.8 mEq/L (22-28); Base Excess (BEa) -4.4 mEq/L (-2.0 to +3.0); CO2 Tension 44.1 mmHg (35.0-45.0); Calcium, Ionized (arterial) 1.24 mmol/L (1.12-1.30); Carboxyhemoglobin (COHb) 0.2 gm% (0.0-3.0); Critical Notified By: CP.PH; Hematocrit-ABG 40 % (42.0-52.0); Hemoglobin (Hb) 13.5 g/dL (14.0-18.0); O2 Tension (PaO2), arterial 55.4 mmHg (> 70.0); Puncture Site Arterial Line; RapidComm Collect By CP.PH; pH, Arterial 7.311 (7.35-7.45)
[2023-01-09] MEDS: Budesonide 0.5 MG/2 ML NEB NEB SCH ×2 (07:00→19:15)
[2023-01-09] MEDS: Sertraline 100 MG TAB PO SCH (08:09)
[2023-01-09] MEDS: Ascorbic Acid 500 mg Chewable Tablet PO SCH ×3 (08:09→21:22)
[2023-01-09] MEDS: Zinc Sulfate 220 MG CAP PO SCH (08:09)
[2023-01-09] MEDS: Cholecalciferol 1,000 UNITS (25 MCG) TAB PO SCH (08:09)
[2023-01-09] MEDS: Cefepime 1 GM in Sodium Chloride 0.9% 100 ML IVPB SCH ×2 (08:10→21:23)
[2023-01-09] MEDS: Bupropion 150 MG SR TAB PO SCH (08:10)
[2023-01-09] MEDS: Atorvastatin Calcium 40 MG TAB PO SCH (08:10)
[2023-01-09] MEDS: risperiDONE 1 MG TAB PO SCH (08:10)
[2023-01-09] MEDS: Dextrose 5% in Water 1,000 ML IV SCH (08:11)
[2023-01-09] MEDS: Albumin 25% 25 GM/100 ML BOT IVPB SCH ×2 (09:17→16:14)
[2023-01-09] MEDS ORDERED: Sodium Bicarbonate 100 MEQ in Dextrose 5% in Water 1,000 ML IV SCH (09:30)
[2023-01-09] MEDS: Phenylephrine 40 MG/NS 250 ML 40 MG in Premix Bag 1 BAG IVPB SCH ×2 (09:54→23:54)
[2023-01-09] MEDS: INSULIN REGULAR IN 0.9 % NACL 100 UNITS in Premix Bag 1 BAG IVPB SCH (12:53)
[2023-01-09 13:27] LABS: Anion Gap 17 mmol/L (10-20); Calc. Creatinine Clearance 23 mL/min (70-130); Carbon Dioxide 21 mmol/L (23-31); Chloride 112 mmol/L (98-107); Potassium 4.2 mmol/L (3.5-5.1); Sodium 146 mmol/L (136-145)
[2023-01-09 13:28] LABS: Estimated GFR 13; Glucose 286 mg/dL (83-110)
[2023-01-09 13:37] LABS: BUN (Urea Nitrogen) 123 mg/dL (8.4-25.7)
[2023-01-09] MEDS: FENTANYL 2,000MCG/100-0.9%NACL 100 ML IVPB SCH (15:06)
[2023-01-09] MEDS: Pantoprazole 40 MG VIAL IVP SCH (21:23)
[2023-01-09] MEDS: Melatonin 3 MG TAB PO SCH (21:23)
[2023-01-09] MEDS ORDERED: Sodium Bicarbonate 100 MEQ, Admixture Fee 1 EACH in Dextrose 5% in Water 1,000 ML IV SCH (23:00)
[2023-01-10] MEDS: Albumin 25% 25 GM/100 ML BOT IVPB SCH (00:07)
[2023-01-10] MEDS: FENTANYL 2,000MCG/100-0.9%NACL 100 ML IVPB SCH ×2 (02:08→15:00)
[2023-01-10] MEDS: INSULIN REGULAR IN 0.9 % NACL 100 UNITS in Premix Bag 1 BAG IVPB SCH (03:03)
[2023-01-10 03:56] LABS: CRP (Inflammatory) 11.62 mg/dL (= or < 0.5)
[2023-01-10 03:57] LABS: #Eosinphils 0.4 10x3/uL (0.0-0.5); #Monocytes 0.2 10x3/uL (0.0-1.1); %Basophils 0.1 % (0.0-2.0); %Eosinophils 3.9 % (0.0-6.0); %Lymphocytes 5.4 % (18.0-47.0); %Monocytes 1.7 % (0.0-10.0); %Neutrophils 87.9 % (40.0-75.0); Hematocrit 32.4 % (38.8-50.0); Mean Corpuscular HGB CONC 30.9 g/dL (32.0-36.0); Mean Corpuscular Hemoglobin 27.7 pg (27.0-33.0); Mean Corpuscular Volume 89.8 fl (81.2-95.1); Mean Platelet Volume 11.4 fl (7.4-10.4); Platelet Count 78 10x3/uL (150-450); RBC Distribution Width 15.9 % (11.5-14.5); Red Blood Cell (RBC) Count 3.61 10x6/uL (4.32-5.72); White Blood Cell (WBC) Count 10.2 10x3/uL (3.5-10.5)
[2023-01-10 03:59] LABS: Actual Bicarbonate (HCO3a) 20.5 mEq/L (22-28); Base Excess (BEa) -4.7 mEq/L (-2.0 to +3.0); CO2 Tension 38.4 mmHg (35.0-45.0); Calcium, Ionized (arterial) 1.31 mmol/L (1.12-1.30); Carboxyhemoglobin (COHb) 0.3 gm% (0.0-3.0); Critical Notified By: CP.PH; Hematocrit-ABG 32 % (42.0-52.0); O2 Tension (PaO2), arterial 51.5 mmHg (> 70.0); Potassium - ABG Lab 3.85 mmol/L (3.70-5.30); Puncture Site Arterial Line; RapidComm Collect By CP.PH; pH, Arterial 7.345 (7.35-7.45)
[2023-01-10 04:02] LABS: Anion Gap 17 mmol/L (10-20); BUN (Urea Nitrogen) Greater than 125 mg/dL (8.4-25.7); Calc. Creatinine Clearance 19 mL/min (70-130); Calcium 9.3 mg/dL (7.8-10.44); Carbon Dioxide 24 mmol/L (23-31); Chloride 107 mmol/L (98-107); Estimated GFR 10; Glucose 171 mg/dL (83-110); Potassium 3.9 mmol/L (3.5-5.1); Sodium 144 mmol/L (136-145)
[2023-01-10] MEDS: Budesonide 0.5 MG/2 ML NEB NEB SCH ×2 (07:00→19:00)
[2023-01-10] MEDS: Cefepime 1 GM in Sodium Chloride 0.9% 100 ML IVPB SCH ×2 (08:22→20:54)
[2023-01-10] MEDS ORDERED: Furosemide 100 MG/10 ML VIAL SLOW IVP SCH (09:00)
[2023-01-10] MEDS ORDERED: Furosemide 20 MG/2 ML VIAL SLOW IVP SCH (09:00)
[2023-01-10] MEDS: Cholecalciferol 1,000 UNITS (25 MCG) TAB PO SCH (09:34)
[2023-01-10] MEDS: Bupropion 150 MG SR TAB PO SCH (09:35)
[2023-01-10] MEDS: Zinc Sulfate 220 MG CAP PO SCH (09:35)
[2023-01-10] MEDS: Ascorbic Acid 500 mg Chewable Tablet PO SCH (09:35)
[2023-01-10 10:11] LABS: ALV-art Gradient 611.025 mmHg (0-20); Actual Bicarbonate (HCO3a) 21.4 mEq/L (22-28); CO2 Tension 45.1 mmHg (35.0-45.0); Calcium, Ionized (arterial) 1.32 mmol/L (1.12-1.30); Carboxyhemoglobin (COHb) 0.1 gm% (0.0-3.0); Hematocrit-ABG 32 % (42.0-52.0); O2 Tension (PaO2), arterial 45.6 mmHg (> 70.0); Potassium - ABG Lab 3.82 mmol/L (3.70-5.30); Puncture Site Arterial Line; pH, Arterial 7.294 (7.35-7.45)
[2023-01-10] MEDS: Propofol 1,000 MG/100 ML VIAL IV PRN ×2 (10:32→23:17)
[2023-01-10] MEDS ORDERED: Vecuronium Bromide 50 MG in Sodium Chloride 0.9% 250 ML 250 ML IV SCH ×2 (10:45)
[2023-01-10] MEDS: Furosemide 100 MG in Sodium Chloride 0.9% 100 ML IVPB SCH ×2 (14:30→19:40)
[2023-01-10 16:37] LABS: A. flavus Negative (Neg:<1:1); A. fumigatus Negative (Neg:<1:1); A. niger Negative (Neg:<1:1); Blastomyces AB Negative (Neg:<1:1)
[2023-01-10] MEDS: Melatonin 3 MG TAB PO SCH (20:54)
[2023-01-10] MEDS ORDERED: VANCOMYCIN 2 GRAM/400 ML BAG IVPB SCH (23:45)
[2023-01-11] MEDS ORDERED: VANCOMYCIN 2 GRAM/400 ML BAG 2 GM in Premix Bag 1 BAG IVPB SCH (00:30)
[2023-01-11] MEDS: INSULIN REGULAR IN 0.9 % NACL 100 UNITS in Premix Bag 1 BAG IVPB SCH (01:58)
[2023-01-11 03:24] LABS: #Eosinphils 0.2 10x3/uL (0.0-0.5); #Monocytes 0.3 10x3/uL (0.0-1.1); #Neutrophils 9.9 10x3/uL (1.5-8.4); %Basophils 0.1 % (0.0-2.0); %Eosinophils 2.1 % (0.0-6.0); %Lymphocytes 4.2 % (18.0-47.0); %Monocytes 2.4 % (0.0-10.0); %Neutrophils 89.8 % (40.0-75.0); Hematocrit 30.8 % (38.8-50.0); Hemoglobin 9.6 g/dL (13.5-17.5); Mean Corpuscular HGB CONC 31.2 g/dL (32.0-36.0); Mean Corpuscular Volume 89.8 fl (81.2-95.1); Mean Platelet Volume 12.2 fl (7.4-10.4); Platelet Count 100 10x3/uL (150-450); RBC Distribution Width 15.8 % (11.5-14.5); Red Blood Cell (RBC) Count 3.43 10x6/uL (4.32-5.72)
[2023-01-11 03:35] LABS: INR-International Normal Ratio 1.2; PTT 31.6 sec (22.0-33.0); Prothrombin Time 12.6 sec (9.5-12.1)
[2023-01-11 03:46] LABS: ALT (SGPT) 27 U/L (8-55); AST (SGOT) 41 U/L (5-34); Albumin 2.4 g/dL (3.4-4.8); Alkaline Phosphatase 130 U/L (40-110); Anion Gap 20 mmol/L (10-20); Bilirubin, Total 0.4 mg/dL (0.2-1.2); Calc. Creatinine Clearance 14 mL/min (70-130); Calcium 10.3 mg/dL (7.8-10.44); Carbon Dioxide 21 mmol/L (23-31); Chloride 103 mmol/L (98-107); Estimated GFR 7; Globulin 2.8 g/dL (2.4-3.5); Glucose 161 mg/dL (83-110); Magnesium 2.8 mg/dL (1.6-2.6); Potassium 4.9 mmol/L (3.5-5.1); Protein, Total 5.2 g/dL (5.8-8.1); Sodium 139 mmol/L (136-145)
[2023-01-11 04:13] LABS: BUN (Urea Nitrogen) 162 mg/dL (8.4-25.7)
[2023-01-11] MEDS: Phenylephrine 40 MG/NS 250 ML 40 MG in Premix Bag 1 BAG IVPB SCH ×3 (04:39→23:10)
[2023-01-11 05:09] LABS: Actual Bicarbonate (HCO3a) 22.3 mEq/L (22-28); Base Excess (BEa) -5.2 mEq/L (-2.0 to +3.0); CO2 Tension 52.8 mmHg (35.0-45.0); Carboxyhemoglobin (COHb) 0.1 gm% (0.0-3.0); Critical Notified By: CP.PH; Hematocrit-ABG 32 % (42.0-52.0); Hemoglobin (Hb) 10.8 g/dL (14.0-18.0); O2 Tension (PaO2), arterial 69.7 mmHg (> 70.0); Potassium - ABG Lab 4.58 mmol/L (3.70-5.30); Puncture Site Arterial Line; RapidComm Collect By CP.PH; pH, Arterial 7.244 (7.35-7.45)
[2023-01-11] MEDS: FENTANYL 2,000MCG/100-0.9%NACL 100 ML IVPB SCH ×2 (05:38→22:04)
[2023-01-11] MEDS: Budesonide 0.5 MG/2 ML NEB NEB SCH ×2 (07:00→18:25)
[2023-01-11] MEDS: Bupropion 150 MG SR TAB PO SCH (08:12)
[2023-01-11] MEDS: Cholecalciferol 1,000 UNITS (25 MCG) TAB PO SCH (08:12)
[2023-01-11] MEDS: Zinc Sulfate 220 MG CAP PO SCH (08:12)
[2023-01-11] MEDS: Cefepime 1 GM in Sodium Chloride 0.9% 100 ML IVPB SCH ×2 (08:13→22:04)
[2023-01-11] MEDS: Famotidine/PF 20 mg/2ml Vial SLOW IVP SCH (08:13)
[2023-01-11] MEDS: Propofol 1,000 MG/100 ML VIAL IV PRN (14:31)
[2023-01-12] MEDS: Phenylephrine 40 MG/NS 250 ML 40 MG in Premix Bag 1 BAG IVPB SCH ×2 (05:14→12:46)
[2023-01-12] MEDS: Propofol 1,000 MG/100 ML VIAL IV PRN (05:14)
[2023-01-12] MEDS: Budesonide 0.5 MG/2 ML NEB NEB SCH (06:45)
[2023-01-12] MEDS ORDERED: Cefepime 1 GM VIAL ONE (07:51)
[2023-01-12] MEDS: Cholecalciferol 1,000 UNITS (25 MCG) TAB PO SCH (08:10)
[2023-01-12] MEDS: Famotidine/PF 20 mg/2ml Vial SLOW IVP SCH (08:10)
[2023-01-12 08:51] VITALS: BMI 38.2
[2023-01-12 08:58] VITALS: TEMP 98.8
[2023-01-12] MEDS: Cefepime 1 GM in Sodium Chloride 0.9% 100 ML IVPB SCH (09:00)
[2023-01-12] MEDS ORDERED: INSULIN REGULAR IN 0.9 % NACL 100 UNITS/100 ML BAG ONE (11:33)
[2023-01-12] MEDS: INSULIN REGULAR IN 0.9 % NACL 100 UNITS in Premix Bag 1 BAG IVPB SCH (11:33)
[2023-01-12] MEDS: Vasopressin 20 UNITS, Admixture Fee 1 EACH in Sodium Chloride 0.9% 50 ML IV SCH (13:52)
[2023-01-12 14:15] VITALS: BP 113/45
[2023-01-12] MEDS ORDERED: Phenylephrine 40 MG in Sodium Chloride 0.9% 250 ML 250 ML IVPB SCH (16:00)
== END 2023-01-12 16:50 | disposition hospice, inpatient (51) | DRG 208 ==
LOC: CSHERS 10:01 → CSHTELE 15:11 → CSHICU 12-31 16:51
PROVIDERS: ADMIT Family Medicine; ATTEND Family Medicine
PROC: XW033E5 Introduction of Remdesivir Anti-infective into Peripheral Vein, Percutaneous Approach, New Technology Group 5 (ICD-10-PCS; 2022-12-29)
PROC: 3E0333Z Introduction of Anti-inflammatory into Peripheral Vein, Percutaneous Approach (ICD-10-PCS; 2022-12-30)
PROC: 5A0935A Assistance with Respiratory Ventilation, Less than 24 Consecutive Hours, High Flow/Velocity Cannula (ICD-10-PCS; 2022-12-31)
PROC: 5A09557 Assistance with Respiratory Ventilation, Greater than 96 Consecutive Hours, Continuous Positive Airway Pressure (ICD-10-PCS; 2023-01-01)
PROC: XW0DXM6 Introduction of Baricitinib into Mouth and Pharynx, External Approach, New Technology Group 6 (ICD-10-PCS; 2023-01-03)
PROC: 06HY33Z Insertion of Infusion Device into Lower Vein, Percutaneous Approach (ICD-10-PCS; principal; 2023-01-08)
PROC: 5A1945Z Respiratory Ventilation, 24-96 Consecutive Hours (ICD-10-PCS; 2023-01-08)
PROC: 0BH17EZ Insertion of Endotracheal Airway into Trachea, Via Natural or Artificial Opening (ICD-10-PCS; 2023-01-08)
PROC: 4A133R1 Monitoring of Arterial Saturation, Peripheral, Percutaneous Approach (ICD-10-PCS; 2023-01-08)
PROC: 3E03329 Introduction of Other Anti-infective into Peripheral Vein, Percutaneous Approach (ICD-10-PCS; 2023-01-08)
PROC: 3E033XZ Introduction of Vasopressor into Peripheral Vein, Percutaneous Approach (ICD-10-PCS; 2023-01-08)
PROC: 30233J1 Transfusion of Nonautologous Serum Albumin into Peripheral Vein, Percutaneous Approach (ICD-10-PCS; 2023-01-08)
PROC: 6A550Z2 Pheresis of Platelets, Single (ICD-10-PCS; 2023-01-10)
DX: U07.1 COVID-19 (principal); A41.9 Sepsis, unspecified organism; J12.82 Pneumonia due to coronavirus disease 2019; J15.9 Unspecified bacterial pneumonia; R65.21 Severe sepsis with septic shock; J80 Acute respiratory distress syndrome; N17.0 Acute kidney failure with tubular necrosis; E87.0 Hyperosmolality and hypernatremia; R04.2 Hemoptysis; E87.20 Acidosis, unspecified; E11.9 Type 2 diabetes mellitus without complications; E78.5 Hyperlipidemia, unspecified; I10 Essential (primary) hypertension; F31.9 Bipolar disorder, unspecified; J45.909 Unspecified asthma, uncomplicated; F41.9 Anxiety disorder, unspecified; R00.1 Bradycardia, unspecified; E66.9 Obesity, unspecified; E87.8 Other disorders of electrolyte and fluid balance, not elsewhere classified; E87.6 Hypokalemia; F25.9 Schizoaffective disorder, unspecified; D69.6 Thrombocytopenia, unspecified; D64.9 Anemia, unspecified; Z79.4 Long term (current) use of insulin; Z98.890 Other specified postprocedural states; Z90.49 Acquired absence of other specified parts of digestive tract; Z87.891 Personal history of nicotine dependence; Z68.32 Body mass index [BMI] 32.0-32.9, adult
CPT/HCPCS: 36415; 36416; 36430; 36600; 71045; 80048; 80053; 81001; 82040; 82550; 82570; 82728; 82805; 83605; 83735; 84100; 84145; 84156; 84300; 84484; 84540; 85025; 85379; 85610; 85730; 86140; 86606; 86612; 86850; 86900; 86901; 87040; 87070; 87081; 87205; 87385; 87449; 87633; 93005; 93010; 94002; 94003; 94640; 94660; 94664; 94760; 94762; 96374; 96375; C9113; J0248; J0456; J0692; J1100; J1200; J1630; J1650; J1815; J1940; J2060; J2370; J2550; J2704; J3370; J3480; J3490; J7050; J7070; J7626; J8540; P9035; P9047; Q0162; S0028

== ENCOUNTER 2023-01-12 17:17 | Inpatient (IN) | payer OTHER ==
[2023-01-12] MEDS ORDERED: Lorazepam 2 MG/ML VIAL SLOW IVP PRN (17:36)
[2023-01-12] MEDS ORDERED: Morphine 4 MG/ML VIAL SLOW IVP PRN (17:36)
[2023-01-12] MEDS ORDERED: Atropine Sulfate 1% Ophth Soln 5 ml Bottle SL PRN (17:37)
[2023-01-12 17:44] VITALS: BMI 38.2
[2023-01-12] MEDS ORDERED: Morphine 4 MG/ML VIAL SLOW IVP SCH ×2 (17:45→19:30)
[2023-01-12] MEDS ORDERED: Lorazepam 2 MG/ML VIAL SLOW IVP SCH ×2 (17:45→20:30)
[2023-01-12 17:51] VITALS: BP 103/40; TEMP 99
== END 2023-01-12 20:30 | disposition expired | DRG 951 ==
LOC: CSHICU 17:17
PROVIDERS: ADMIT Family Medicine; ATTEND Family Medicine
DX: Z51.5 Encounter for palliative care (principal); J96.01 Acute respiratory failure with hypoxia; U07.1 COVID-19; J12.82 Pneumonia due to coronavirus disease 2019; N17.9 Acute kidney failure, unspecified; J45.909 Unspecified asthma, uncomplicated; I10 Essential (primary) hypertension; E11.9 Type 2 diabetes mellitus without complications; E78.5 Hyperlipidemia, unspecified
CPT/HCPCS: 94762; J2060; J2270